=== PATIENT | female | born 1965 | race Caucasian/White ===

== ENCOUNTER → 2016-12-29 | Outpatient (CLI) | payer OTHER ==
[~2016-12-29] MED LIST: HYDR25TA4 PO
--- OUTSIDE RECORDS SUMMARY | 2016-12-29 12:47 | XMS REPORT | Continuity of Care Document ---
Author Author [facility] Organization [facility] Address Unknown Phone Unavailable Care Team Providers Care Postdoctoral Scientist Name Role Phone No Pcp, Na PCP Unavailable Source Comments Some departments are not documenting in the electronic medical record. 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 Resolved Problems Problem Noted Date Resolved Date Primary localized osteoarthrosis, pelvic region and thigh 10/22/201311/27 Pain in joint, pelvic region and thigh 10/22/2013 11/27/2013 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 11/27/2013 Social History Tobacco Use Types Packs/Day Years Used Date Never Smoker Smokeless Tobacco: Never Used Tobacco Cessation: Counseling Given: Yes Comments: Alcohol Use Drinks/Week oz/Week Comments Yes 1 Glasses of 0.6 occ wine Last Filed Vital Signs Vital Sign Reading Time Taken Blood Pressure 156/83 11/05/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 Pulse 66 11/05/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 Temperature 36.9 C (98.5 F) 10/24/2013 6:48 AM WASHING MACHINE REPAIRER Respiratory Rate - - Height 1.651 m (5' 5") 11/05/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 Weight 99.791 kg (220 lb) 11/05/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 Body Mass Index 36.61 11/05/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 Oxygen Saturation 97% 10/24/2013 6:48 AM WASHING MACHINE REPAIRER Plan of Care Health Maintenance Due Date Last Done Comments Physical (Comprehensive) 1973 Exam Pertussis Vaccine 1977 Tetanus Vaccine 1983 Cervical Cancer Screening 1987 Breast Cancer Screening 2006 Influenza Vaccine 07/21/2016 Results from Last 3 Months Not on file
--- NOTE | 2016-12-29 19:05 | Diagnostic Imaging Report ---
Bilateral screening mammogram. The current study was also evaluated with a Computer Aided Detection (CAD) system. INDICATION: Screening. No current complaints stated on the questionnaire. COMPARISON: 03/19/15. FINDINGS: The breasts are composed of scattered fibroglandular densities. Scattered benign-appearing calcifications seen. Allowing for technique and positional differences, no suspicious change is seen. IMPRESSION: No significant change. ACR BI-RADS Category 2: Benign findings. Result letter will be mailed to the patient. Note: At least 10% of breast cancer is not imaged by mammography. Dictated by: Dictated on workstation # [id number]
== END ==
LOC: RAD 12:44
PROVIDERS: ATTEND Family Medicine
DX: Z12.31 Encounter for screening mammogram for malignant neoplasm of breast (principal)
CPT/HCPCS: 77067

== ENCOUNTER 2017-09-22 05:41 | Outpatient (CLI) | payer OTHER ==
[~2017-09-22] VITALS: Ht 167.6 cm; Wt 98.0 kg
[2017-09-22] MEDS ORDERED: ATOR10TA66 PO (15:06)
[2017-09-22] MEDS ORDERED: LISI1TAB10 PO (15:06)
== END 2017-09-22 15:08 ==
LOC: PREOP 05:41
PROVIDERS: ATTEND Internal Medicine
DX: Z01.818 Encounter for other preprocedural examination (principal); Z12.11 Encounter for screening for malignant neoplasm of colon

== ENCOUNTER → 2018-04-18 | Outpatient (CLI) | payer OTHER ==
[~2018-04-18] MED LIST changes: +ATOR10TA66 PO; +LISI1TAB10 PO
--- NOTE | 2018-04-18 14:36 | Diagnostic Imaging Report ---
INDICATION: Routine screening. Comparison is made with prior study from 12/29/2016 and 03/19/2015. 2D and 3D bilateral screening mammography was performed. The current study was also evaluated with a Computer Aided Detection (CAD) system. FINDINGS: Scattered fibroglandular densities are identified bilaterally. No discrete mass or malignant-appearing microcalcifications are identified. The axillae are unremarkable. IMPRESSION: No mammographic features suspicious for malignancy are identified. ACR BI-RADS Category 1: Negative. Result letter will be mailed to the patient. Note: At least 10% of breast cancer is not imaged by mammography. Dictated by: Dictated on workstation # [id number]
== END ==
LOC: RAD 07:31
PROVIDERS: ATTEND Family Medicine
DX: Z12.31 Encounter for screening mammogram for malignant neoplasm of breast (principal)
CPT/HCPCS: 77067

== ENCOUNTER → 2018-09-18 | Outpatient (CLI) | payer OTHER ==
--- NOTE | 2018-09-18 16:02 | Diagnostic Imaging Report ---
INDICATION: Left shoulder pain. TIME OF EXAMINATION: 1:40 PM. FINDINGS: Multiple views of the left shoulder were obtained. The glenohumeral and acromioclavicular alignment is normal. The acromiohumeral space is normal. No fracture or dislocation is seen. IMPRESSION: No acute abnormality is detected. Dictated by: Dictated on workstation # [id number]
== END ==
LOC: RAD 12:58
PROVIDERS: ATTEND Orthopaedic Surgery
DX: S42.225A 2-part nondisplaced fracture of surgical neck of left humerus, initial encounter for closed fracture (principal)
CPT/HCPCS: 73030

== ENCOUNTER → 2018-10-08 | Outpatient (CLI) | payer OTHER ==
--- NOTE | 2018-10-08 15:23 | Diagnostic Imaging Report ---
PROCEDURE: MRI left upper extremity without contrast. TECHNIQUE: Multiplanar, multisequence non contrast-enhanced MRI of the left upper extremity was accomplished. INDICATION: Fell, arm pain. FINDINGS: There are no previous MRI examinations available for comparison. The plain film examination of the left shoulder performed on 09/18/2018 failed to show any sign of an acute abnormality. On the T2 fat-saturated coronal series of this exam, the rotator cuff has been completely torn. There is now elevation of the humeral head with respect to the glenoid, and there is marked narrowing of the space between the undersurface of the acromion and the humeral head. The supraspinatus muscle itself does appear to have partially degenerated. There appears to be a broad cleft in the remaining portion of the supraspinatus muscle, and this may be secondary to a long-standing partial tear. There is hypertrophy of the acromioclavicular joint, and this does result in narrowing of the outlet for the torn supraspinatus muscle. The biceps tendon appears to be intact. The labrum is thinned centrally and most likely torn on a degenerative basis. There is a small joint effusion present, and there is at least a moderate amount of fluid in the bursa anterior to the shoulder joint. There is no abnormal signal arising from the osseous structures to suggest bone edema or a fracture. IMPRESSION: 1. The rotator cuff has been completely torn, and the supraspinatus muscle is partially degenerated. There also appears to be a broad cleft in the remaining portion of the supraspinatus muscle. This may represent a long-standing partial tear. 2. There is hypertrophy of the acromioclavicular joint, and this does result in narrowing of the torn supraspinatus muscle. 3. The labrum is thinned and most likely torn on a degenerative basis. 4. There is a small joint effusion present and at least a moderate amount of fluid in the bursa anterior to the shoulder joint. 5. There is no acute bony abnormality noted. Dictated by: Dictated on workstation # [id number]
--- NOTE | 2018-10-08 15:32 | Diagnostic Imaging Report ---
PROCEDURE: MRI right joint upper extremity without contrast. TECHNIQUE: Multiplanar, multisequence non contrast-enhanced MRI of the right upper extremity was accomplished. INDICATION: Right shoulder pain. COMPARISON: There are no previous exams available for comparison. FINDINGS: On the T2 fat-saturated series, there is abnormal signal involving the anterior half of the insertion of the rotator cuff. This would be consistent with a partial tear. The supraspinatus muscle in this area is bunched and partially retracted. The posterior half of the rotator cuff insertion seems to be intact, but there is increased signal in the soft tissues adjacent to the rotator cuff on the T2 fat-saturated series. I suspect that this is due to edema/inflammation, and most likely, there is an element of tendinitis present. There is hypertrophy of the acromioclavicular joint, and this does result in significant narrowing of the outlet for the supraspinatus muscle. There is also a small amount of fluid within the joint, and there is mild distortion of the soft tissues about the acromioclavicular joint. There is also some fluid in the subacromial bursa. These findings do suggest that there is inflammation of the acromioclavicular joint. The biceps tendon and the subscapularis tendon are intact. The labrum is thinned centrally and probably partially torn on a degenerative basis. There is no acute labral tear identified. There is a very small joint effusion present. There is no abnormal signal arising from the osseous structures to suggest an acute bony injury. IMPRESSION: 1. The anterior half of the rotator cuff has been torn, and the supraspinatus muscle in this area is bunched and slightly retracted. There also appears to be an element of tendinitis present. 2. There is hypertrophy of the acromioclavicular joint, and this does result in significant narrowing of the outlet for the supraspinatus muscle. There also appears to be inflammation of the acromioclavicular joint itself. 3. The labrum is thinned and most likely torn on a degenerative basis. 4. There is no sign of an acute bony abnormality. Dictated by: Dictated on workstation # [id number]
== END ==
LOC: RAD 13:33
PROVIDERS: ATTEND Orthopaedic Surgery
DX: S43.011A Anterior subluxation of right humerus, initial encounter (principal); S43.012A Anterior subluxation of left humerus, initial encounter; M62.89 Other specified disorders of muscle; W19.XXXA Unspecified fall, initial encounter
CPT/HCPCS: 73221

== ENCOUNTER → 2019-01-28 | Outpatient (RCR) | payer OTHER | END | disposition home or self-care (01) | PROVIDERS: ATTEND Orthopaedic Surgery | DX: Z47.89 Encounter for other orthopedic aftercare (principal); M25.512 Pain in left shoulder ==

== ENCOUNTER → 2019-04-19 | Outpatient (CLI) | payer OTHER ==
--- NOTE | 2019-04-19 19:58 | Diagnostic Imaging Report ---
INDICATION: Routine screening. Comparison is made with prior mammogram from 04/18/2018 and 12/29/2016. 2-D and 3-D bilateral screening mammography was performed with CAD. The current study was also evaluated with a Computer Aided Detection (CAD) system. Scattered fibroglandular densities are identified bilaterally. A nodular density is identified in the upper aspect of the right breast appearing more prominent when compared with prior exams. Some questionable associated architectural distortion. No correlate on the CC view is seen. Additional views are recommended. Left breast is unremarkable. No suspicious microcalcifications are seen. Axillae are unremarkable. IMPRESSION: Right breast density. Additional views are recommended ACR BI-RADS Category 0: Incomplete. (Needs additional imaging evaluation). Result letter will be mailed to the patient. Note: At least 10% of breast cancer is not imaged by mammography. Dictated by: Dictated on workstation # [id number]
== END ==
LOC: RAD 11:12
PROVIDERS: ATTEND Nurse Practitioner Family
DX: Z12.31 Encounter for screening mammogram for malignant neoplasm of breast (principal); R92.8 Other abnormal and inconclusive findings on diagnostic imaging of breast
CPT/HCPCS: 77067

== ENCOUNTER 2019-04-29 08:48 | Outpatient (RCR) | payer OTHER | END 2019-04-30 | disposition home or self-care (01) | PROVIDERS: ATTEND Orthopaedic Surgery | DX: S43.422D Sprain of left rotator cuff capsule, subsequent encounter (principal); W22.8XXD Striking against or struck by other objects, subsequent encounter ==

== ENCOUNTER → 2019-05-02 | Outpatient (CLI) | payer OTHER ==
--- NOTE | 2019-05-02 19:58 | Diagnostic Imaging Report ---
EXAMINATION: Unilateral diagnostic right mammogram. The current study was also evaluated with a Computer Aided Detection (CAD) system. 3-D tomosynthesis was also performed and reviewed. INDICATION: Abnormal screening mammogram. FINDINGS: The screening mammogram performed on 04/19/2019 suggested a nodular density in the superior aspect of the right breast. There is also a question of architectural distortion in this area. On this exam, the area in question is not as conspicuous on the compression and true lateral views. This finding may be secondary to fibroglandular tissue alone. Even so, ultrasound will be recommended for further evaluation. IMPRESSION: Ultrasound will be recommended for further evaluation of the right breast. ACR BI-RADS Category 0: Incomplete. (Needs additional imaging evaluation). Result letter will be mailed to the patient. Note: At least 10% of breast cancer is not imaged by mammography. Dictated by: Dictated on workstation # [id number]
--- NOTE | 2019-05-02 20:00 | Diagnostic Imaging Report ---
EXAMINATION: Right breast ultrasound. INDICATION: Abnormal mammogram. FINDINGS: The screening mammogram performed on 04/19/2019 suggested a nodular density in the upper aspect of the right breast on the MLO view. There was no correlate on the CC view. On the diagnostic mammogram and the tomographic images performed earlier today, there was no clear evidence for a mass in this area. On this study, there is no discrete solid or cystic mass visualized in this portion of the breast. I suspect that the density seen on the prior exam may well have been secondary to superimposition. Even so, I would recommend that a short-term (six-month) follow-up mammogram and possibly ultrasound of the right breast be performed for further study. IMPRESSION: There is no evidence for malignancy. Recommendations as above. ACR BI-RADS Category 3: Probably benign findings. Dictated by: Dictated on workstation # [id number]
== END ==
LOC: RAD 12:31
PROVIDERS: ATTEND Nurse Practitioner Family
DX: R92.2 Inconclusive mammogram (principal)

== ENCOUNTER 2019-07-02 08:30 | Outpatient (RCR) | payer OTHER | END 2019-07-30 10:52 | disposition home or self-care (01) | PROVIDERS: ATTEND Orthopaedic Surgery | DX: S43.422D Sprain of left rotator cuff capsule, subsequent encounter (principal); W22.8XXD Striking against or struck by other objects, subsequent encounter ==

== ENCOUNTER → 2019-11-06 | Outpatient (CLI) | payer OTHER ==
--- NOTE | 2019-11-06 14:30 | Diagnostic Imaging Report ---
INDICATION: Six-month followup right breast density. Correlation made with prior mammograms from 04/19/2019, 04/18/2018 as well as 12/29/2016. Unilateral right 2-D and 3-D diagnostic mammography was performed with CAD. Scattered fibroglandular densities in the right breast are again noted. The density in the superior right breast mid depth best seen on MLO view appears stable. No new mass or malignant-appearing microcalcifications are seen. Right axilla is unremarkable. IMPRESSION: BI-RADS 3 Stable right mammogram. Additional six-month followup is recommended to confirm continued stability. ACR BI-RADS Category 3: Probably benign findings. Result letter will be mailed to the patient. Note: At least 10% of breast cancer is not imaged by mammography. Dictated by: Dictated on workstation # [id number]
== END ==
LOC: RAD 14:03
PROVIDERS: ATTEND Nurse Practitioner Family
DX: R92.2 Inconclusive mammogram (principal)

== ENCOUNTER → 2020-04-28 | Outpatient (CLI) | payer OTHER ==
[~2020-04-28] MED LIST changes: -LISI1TAB10 PO; +LISI1TAB26 PO
--- NOTE | 2020-04-28 18:35 | Diagnostic Imaging Report ---
INDICATION: Routine screening. COMPARISON is made with prior mammograms from 04/19/2019 and 04/18/2018. 2-D and 3-D bilateral screening mammography was performed with CAD. Scattered fibroglandular densities are identified bilaterally. A density previously described in the upper right breast is not well-seen on today's study and has likely resolved. No new mass or malignant appearing microcalcifications are seen. Density in the outer aspect of the right breast on the CC view mid depth is stable. Axillae are unremarkable. IMPRESSION: BI-RADS Category 2. No mammographic features suspicious for malignancy are identified. ACR BI-RADS Category 2: Benign findings. Result letter will be mailed to the patient. Note: At least 10% of breast cancer is not imaged by mammography. Dictated by: Dictated on workstation # [id number]
== END ==
LOC: RAD 14:48
PROVIDERS: ATTEND Family Medicine
DX: Z12.31 Encounter for screening mammogram for malignant neoplasm of breast (principal)
CPT/HCPCS: 77063; 77067

== ENCOUNTER → 2020-11-11 | Outpatient (CLI) | payer OTHER ==
--- NOTE | 2020-11-12 08:26 | NUR ---
Notified of positive COVID test.
== END ==
LOC: LABNPT 08:27
PROVIDERS: ATTEND Family Medicine
DX: Z01.812 Encounter for preprocedural laboratory examination (principal); U07.1 COVID-19
CPT/HCPCS: 87635

== ENCOUNTER → 2021-06-24 | Outpatient (CLI) | payer OTHER ==
--- NOTE | 2021-06-24 12:41 | Diagnostic Imaging Report ---
INDICATION: Routine screening. Comparison is made with prior mammogram from 04/28/2020 and 04/19/2019. 2-D and 3-D bilateral screening mammography was performed with CAD. Scattered fibroglandular densities are identified bilaterally. The parenchymal pattern is stable. No dominant mass or malignant-appearing microcalcifications are seen. Axillae are unremarkable. IMPRESSION: BI-RADS Category 1 No mammographic features suspicious for malignancy are identified. ACR BI-RADS Category 1: Negative. Result letter will be mailed to the patient. Note: At least 10% of breast cancer is not imaged by mammography. Dictated by: Dictated on workstation # [id number]
== END ==
LOC: RAD 10:45
PROVIDERS: ATTEND Family Medicine
DX: Z12.31 Encounter for screening mammogram for malignant neoplasm of breast (principal)
CPT/HCPCS: 77063; 77067

== ENCOUNTER → 2022-06-27 | Outpatient (CLI) | payer OTHER ==
[~2022-06-27] MED LIST changes: -LISI1TAB26 PO; +LISI1TAB48 PO
--- NOTE | 2022-06-27 12:08 | Diagnostic Imaging Report ---
INDICATION: Routine screening. COMPARISON: 06/24/2021 and 04/28/2020. TECHNIQUE: 2D and 3D bilateral screening mammography was performed with CAD. FINDINGS: Scattered fibroglandular densities are identified bilaterally. The parenchymal pattern is stable. No mass or malignant-appearing microcalcifications are seen. The axillae are unremarkable. IMPRESSION: No mammographic features suspicious for malignancy are identified. ACR BI-RADS Category 1: Negative. Result letter will be mailed to the patient. Note: At least 10% of breast cancer is not imaged by mammography. Dictated by: Dictated on workstation # [id number]
== END ==
LOC: RAD 10:15
PROVIDERS: ATTEND Family Medicine
DX: Z12.31 Encounter for screening mammogram for malignant neoplasm of breast (principal)
CPT/HCPCS: 77063; 77067

== ENCOUNTER → 2023-06-28 | Outpatient (CLI) | payer OTHER ==
--- NOTE | 2023-06-28 09:59 | Diagnostic Imaging Report ---
Indication: Routine screening. Comparison is made with prior mammogram 06/27/2022 and 06/24/2021. 2-D and 3-D bilateral screening mammography was performed with CAD. The current study was also evaluated with a Computer Aided Detection (CAD) system. Scattered fibroglandular densities are identified bilaterally. The parenchymal pattern is stable. No mass or malignant-appearing microcalcifications are seen. Axillae are unremarkable. IMPRESSION: BI-RADS Category 1 No mammographic features suspicious for malignancy are identified. ACR BI-RADS Category 1: Negative. Result letter will be mailed to the patient. Note: At least 10% of breast cancer is not imaged by mammography. Dictated by: Dictated on workstation # [id number]
== END ==
LOC: RAD 07:30
PROVIDERS: ATTEND Nurse Practitioner
DX: Z12.31 Encounter for screening mammogram for malignant neoplasm of breast (principal)
CPT/HCPCS: 77063; 77067